=== PATIENT | male | born 1965 | race Caucasian/White ===

== ENCOUNTER → 2020-02-26 12:51 | Outpatient (BNVA) | payer SELFPAY | PROVIDERS: Visit Provider Emergency Medicine | DX: R50.9 Fever, unspecified (principal); R11.0 Nausea; R05 Cough; R68.89 Other general symptoms and signs; W57.XXXA Bitten or stung by nonvenomous insect and other nonvenomous arthropods, initial encounter | CPT/HCPCS: 87400; 87635 ==

== ENCOUNTER 2020-03-05 15:32 | Emergency (ER) | payer SELFPAY ==
[2020-03-05 15:44] VITALS: BP 133/89; PULSE 88; RESP 18; TEMP 36.5; O2SAT 97; BMI 32.1
--- NOTE | 2020-03-05 16:26 | CTR_ITS ---
PROCEDURE INFORMATION: Exam: CT Head Without Contrast Exam date and time: 03/05/2020 5:39 PM Age: 54 years old Clinical indication: Visual disturbance; Patient HX: C/O fever, weakness and double vision; Additional info: Visual changes/ headache TECHNIQUE: Imaging protocol: Computed tomography of the head without contrast. Radiation optimization: All CT scans at this facility use at least one of these dose optimization techniques: automated exposure control; mA and/or kV adjustment per patient size (includes targeted exams where dose is matched to clinical indication); or iterative reconstruction. COMPARISON: No relevant prior studies available. RADIATION DOSE METRICS: Total DLP (mGy-cm): 917.62 FINDINGS: Brain: There is no evidence of infarct, benito-white matter differentiation is preserved. There is no hemorrhage or extra-axial collection. There is no mass. No subarachnoid hemorrhage. No evidence of cerebral edema. Ventricles: Normal. No ventriculomegaly. Bones/joints: Unremarkable. No acute fracture. Sinuses: Visualized sinuses are unremarkable. No fluid levels. Mastoid air cells: Visualized mastoid air cells are well aerated. Soft tissues: Unremarkable. CT/CT head wo con* [id number] IMPRESSION: No intracranial lesion or injury. Radiation Dose CTDIVOL = (mGy): DLP = 917.62 (mGy-cm)
--- NOTE | 2020-03-05 18:09 | ED_ITS ---
Documented by User: Patrick Atkins DO 03/06/20 06:37 HPI - General Adult General: Chief complaint: General Medical Stated complaint: sent by dr brumfield Time Seen by Provider: 03/05/20 18:18 History of Present Illness: HPI narrative: 54-year-old male presents to the emergency room with complaint of just generally not feeling well. He actually has quite a history for the last several months off and on he is just not felt well. 4 weeks ago he had a tick bite with a bull's-eye rash he was seen by a local clinic was COVID tested through [employer] [facility] and that was negative. A tick panel was not done but based on the history he was started on doxycycline he was started on this doxycycline about 8 days ago he still has a few days ago. During this time since the initial tick bite he is noticed that he has had visual field symptoms particularly in his right eye he has had double vision is also had a loss of sensation in his feet and additionally had zinging shooting sensation into his feet but it is not radiating from his back it is just in the feet itself. He is not noticed any other wondering neuropathies. He has had at times though some memory loss along with a transient double vision. And at times he states he has significant memory gaps that he associates with fever. Has had temps up to 102 at times although is not had any temp today. Associated symptoms: Deny chest pain, dyspnea, malaise, nausea, rash or vomiting Review of Systems Const: Denies: fever(s), chills, body aches, change in appetite, fatigue or malaise ENMT: Denies: throat pain, ear or mastoid pain, nasal discharge or nasal conge stion Card: Denies: chest pain, edema, dyspnea on exertion or orthopnea Resp: Denies: dyspnea, productive cough or non-productive cough GI: Denies: abdominal pain, nausea, vomiting, hematemesis, coffee ground emesis, diarrhea, constipation, bloating, hematochezia or melena : Denies: flank pain, dysuria, urinary frequency or urinary urgency Skin/Breast: Denies: rash or pruritus PFSH ED PFSH: Medical History (Updated 03/05/20 @ 19:23 by Ravi Mendez DO) Patient denies significant medical history Vision changes Surgical History (Updated 03/05/20 @ 18:26 by Patrick Atkins DO) H/O decompression of ulnar nerve H/O hernia repair H/O knee surgery Social History Smoking and tobacco status: never smoked Alcohol intake: never Physical Exam Const: COMMON NORMALS: no acute distress GENERAL APPEARANCE: cooperative and comfortable ORIENTATION/CONSCIOUSNESS: Yes awake, Yes oriented to person, Yes oriented to place and Yes oriented to time HENMT: COMMON NORMALS: normocephalic, atraumatic, hearing grossly normal bilaterally, external ears normal, EAC's normal, TM's normal bilaterally, Normal nasal mucous membranes and turbinates present, moist oral mucous membranes and oropharynx normal HEAD & SCALP: normocephalic and atraumatic NOSE: Normal nasal mucous membranes and turbinates present EXTERNAL EAR: Yes external ears normal EXTERNAL AUDITORY CANAL: EAC's normal TYMPANIC MEMBRANE: TM's normal bilaterally Eye: COMMON NORMALS: Equal, round and reactive pupils present, EOMs intact bilaterally, conjunctivae normal and no scleral icterus CONJUNCTIVA: Yes conjunctivae normal PUPIL: Yes Equal, round and reactive pupils present Neck/C-Spine: COMMON NORMALS: full ROM, no lymphadenopathy, supple and no JVD Lymph: LYMPHATIC: no lymphadenopathy noted and no lymphedema noted Resp: COMMON NORMALS: normal respiratory effort, No retractions, No use of accessory muscles and clear to auscultation bilaterally AUSCULTATION: clear to auscultation bilaterally Cardio: COMMON NORMALS: no JVD, regular rate, regular rhythm and No murmurs present (Cardio) RATE: regular rate RHYTHM: regular rhythm GI: COMMON NORMALS: Soft to palpation and No hepatosplenomegaly present AUSCULTATION: Yes normoactive bowel sounds PALPATION: Yes Soft to palpation, No Tenderness to palpation present (GI), No Guarding due to palpation present (GI) and Yes No hepatosplenomegaly present Extremity: COMMON NORMALS: normal to inspection, capillary refill normal, no clubbing, cyanosis or edema, no calf tenderness and no pedal edema Neuro: SENSORIUM/ORIENTATION: Yes oriented to person, Yes oriented to place and Yes oriented to time Skin: COMMON NORMALS: no rashes or lesions noted GENERAL SKIN EXAM: no rashes or lesions noted Course Vital Signs: Vital signs: Vital Signs Temperature 97.7 F 03/05/20 15:44 Pulse Rate 88 03/05/20 15:44 Respiratory Rate 18 03/05/20 15:44 Blood Pressure 133/89 03/05/20 15:44 Pulse Oximetry 97 03/05/20 15:44 MDM - General Adult MDM Narrative: Medical decision making narrative: Discussed with Dr. Mendez care transferred to Dr. Mendez at change of shift. Lab Data: Labs: Lab Results 03/05/20 03/05/20 03/05/20 Range/Units 18:05 18:05 18:05 WBC 9.2 (4.0-10.0) 10^3/ uL RBC 4.51 (4.1-5.3) 10^6/u L Hgb 13.0 (11.7-16.6) g/dL Hct 41.0 L (42.0-52.0) % MCV 90.9 (80-94) fL MCH 28.8 (28.0-34.0) pg MCHC 31.7 (30.0-36.0) g/dL RDW 13.1 (12.1-15.1) % Plt Count 220 (130-400) 10^3/c mm MPV 8.8 (7.4-10.4) fL Neut % (Auto) 40.6 % Lymph % (Auto) 46.4 % Emmet % (Auto) 9.2 % Eos % (Auto) 0.9 % Baso % (Auto) 0.3 % Neut # (Auto) 3.7 (1.8-7.7) 10^3/u L Lymph # (Auto) 4.3 (0.8-4.8) 10^3/u L Emmet # (Auto) 0.8 (0.2-0.9) 10^3/u L Eos # (Auto) 0.1 (0.0-0.8) 10^3/u L Baso # (Auto) 0.0 (0.0-0.1) 10^3/u L Nucleated RBC % (a uto) 0 % Nucleated RBCs # 0.0 /100WBC Sodium 139 (136-145) mmol/L Potassium 4.6 (3.5-5.1) mmol/L Chloride 102 (98-107) mmol/L Carbon Dioxide 28 (22-29) mmol/L Anion Gap 13.6 (5-19) BUN 13 (6-20) mg/dL Creatinine 0.9 (0.7-1.2) mg/dL GFR Calculation 87.6 L (90-130) mL/min Glucose 98 (65-115) mg/dL Calculated Osmolal ity 284 L (285-295) mOsm/k g Lactate 1.3 (0.5-2.2) mmol/L Calcium 9.4 (8.5-10.5) mg/dL Total Bilirubin 0.3 (0.15-1.2) mg/dL AST 34 (0-40) U/L ALT 119 H (0-41) U/L Alkaline Phosphata se 79 (40-130) IU/L C-Reactive Protein (0.0-4.9) mg/L Total Protein 6.9 (6.6-8.7) g/dL Albumin 4.0 (3.5-5.2) g/dL Globulin 2.9 (1.3-4.6) g/dL Vitamin B12 (232-1245) pg/mL Folate (4.5-32.2) ng/mL Urine Color (Yellow) Urine Appearance (CLEAR) Urine pH (5-7) Ur Specific Gravit y (1.005-1.030) Urine Protein (Negative) Urine Glucose (UA) (Normal) Urine Ketones (Negative) Urine Blood (Negative) Urine Nitrate (Negative) Urine Bilirubin (NEGATIVE) Urine Urobilinogen (Negative) mg/dL Ur Leukocyte Niki ase (Negative) Rheumatoid Factor (0-14) IU/mL 03/05/20 03/05/20 03/05/20 Range/Units 18:05 18:05 18:05 WBC (4.0-10.0) 10^3/ uL RBC (4.1-5.3) 10^6/u L Hgb (11.7-16.6) g/dL Hct (42.0-52.0) % MCV (80-94) fL MCH (28.0-34.0) pg MCHC (30.0-36.0) g/dL RDW (12.1-15.1) % Plt Count (130-400) 10^3/c mm MPV (7.4-10.4) fL Neut % (Auto) % Lymph % (Auto) % Emmet % (Auto) % Eos % (Auto) % Baso % (Auto) % Neut # (Auto) (1.8-7.7) 10^3/u L Lymph # (Auto) (0.8-4.8) 10^3/u L Emmet # (Auto) (0.2-0.9) 10^3/u L Eos # (Auto) (0.0-0.8) 10^3/u L Baso # (Auto) (0.0-0.1) 10^3/u L Nucleated RBC % (a uto) % Nucleated RBCs # /100WBC Sodium (136-145) mmol/L Potassium (3.5-5.1) mmol/L Chloride (98-107) mmol/L Carbon Dioxide (22-29) mmol/L Anion Gap (5-19) BUN (6-20) mg/dL Creatinine (0.7-1.2) mg/dL GFR Calculation (90-130) mL/min Glucose (65-115) mg/dL Calculated Osmolal ity (285-295) mOsm/k g Lactate (0.5-2.2) mmol/L Calcium (8.5-10.5) mg/dL Total Bilirubin (0.15-1.2) mg/dL AST (0-40) U/L ALT (0-41) U/L Alkaline Phosphata se (40-130) IU/L C-Reactive Protein 14.9 H (0.0-4.9) mg/L Total Protein (6.6-8.7) g/dL Albumin (3.5-5.2) g/dL Globulin (1.3-4.6) g/dL Vitamin B12 1039 (232-1245) pg/mL Folate 15.1 (4.5-32.2) ng/mL Urine Color (Yellow) Urine Appearance (CLEAR) Urine pH (5-7) Ur Specific Gravit y (1.005-1.030) Urine Protein (Negative) Urine Glucose (UA) (Normal) Urine Ketones (Negative) Urine Blood (Negative) Urine Nitrate (Negative) Urine Bilirubin (NEGATIVE) Urine Urobilinogen (Negative) mg/dL Ur Leukocyte Niki ase (Negative) Rheumatoid Factor 10.0 (0-14) IU/mL 03/05/20 Range/Units 18:20 WBC (4.0-10.0) 10^3/ uL RBC (4.1-5.3) 10^6/u L Hgb (11.7-16.6) g/dL Hct (42.0-52.0) % MCV (80-94) fL MCH (28.0-34.0) pg MCHC (30.0-36.0) g/dL RDW (12.1-15.1) % Plt Count (130-400) 10^3/c mm MPV (7.4-10.4) fL Neut % (Auto) % Lymph % (Auto) % Emmet % (Auto) % Eos % (Auto) % Baso % (Auto) % Neut # (Auto) (1.8-7.7) 10^3/u L Lymph # (Auto) (0.8-4.8) 10^3/u L Emmet # (Auto) (0.2-0.9) 10^3/u L Eos # (Auto) (0.0-0.8) 10^3/u L Baso # (Auto) (0.0-0.1) 10^3/u L Nucleated RBC % (a uto) % Nucleated RBCs # /100WBC Sodium (136-145) mmol/L Potassium (3.5-5.1) mmol/L Chloride (98-107) mmol/L Carbon Dioxide (22-29) mmol/L Anion Gap (5-19) BUN (6-20) mg/dL Creatinine (0.7-1.2) mg/dL GFR Calculation (90-130) mL/min Glucose (65-115) mg/dL Calculated Osmolal ity (285-295) mOsm/k g Lactate (0.5-2.2) mmol/L Calcium (8.5-10.5) mg/dL Total Bilirubin (0.15-1.2) mg/dL AST (0-40) U/L ALT (0-41) U/L Alkaline Phosphata se (40-130) IU/L C-Reactive Protein (0.0-4.9) mg/L Total Protein (6.6-8.7) g/dL Albumin (3.5-5.2) g/dL Globulin (1.3-4.6) g/dL Vitamin B12 (232-1245) pg/mL Folate (4.5-32.2) ng/mL Urine Color Yellow (Yellow) Urine Appearance Clear (CLEAR) Urine pH 6 (5-7) Ur Specific Gravit y 1.015 (1.005-1.030) Urine Protein Neg (Negative) Urine Glucose (UA) Norm (Normal) Urine Ketones Negative (Negative) Urine Blood Neg (Negative) Urine Nitrate Negative (Negative) Urine Bilirubin Neg (NEGATIVE) Urine Urobilinogen Neg (Negative) mg/dL Ur Leukocyte Niki ase Negative (Negative) Rheumatoid Factor (0-14) IU/mL Discharge Plan Discharge Patient Disposition: Home, Self-Care Clinical Impression: Neuropathy, Myalgia Condition: Stable Prescriptions: New doxycycline hyclate 100 mg capsule 100 mg PO BID 14 Days Qty: 28 RF: 0 No Action albuterol sulfate 90 mcg/actuation HFA aerosol inhaler 2 puff INHALATION Q6H PRN (Reason: shortness of breath or wheezing) Qty: 8.5 RF: 0 doxycycline hyclate 100 mg tablet 100 mg PO BID 10 Days Qty: 20 RF: 0 ondansetron 4 mg tablet,disintegrating 4 mg PO Q6H PRN (Reason: nausea and vomiting) Qty: 12 RF: 0 guaifenesin [Mucinex] 600 mg tablet extended release 12hr 600 mg PO Q12H PRNRF: 0 ibuprofen 200 mg tablet 600 mg PO Q6H PRNRF: 0 Discharge Orders: Discharge Order (Routine); Ordered 03/05/20 Ordered By: Ravi Mendez Discharge Diet: Usual diet Discharge Activity: Increase activity as tolerated Patient Instructions: Peripheral Neuropathy (ED), Paresthesia (ED) Activity Restrictions/Additional Instructions: Case management referrals have been placed for both rheumatology and neurology. Continue the doxycycline as we discussed. Return for fever greater than 100 despite treatment, worsening symptoms despite treatment, other concerning symptoms. Discharge Date/Time: 03/05/20 19:59 Coding Level of Care Code ED Vp Compliance for Chg Fwd Exam Comprehensive Documented by User: Ravi Mendez DO 03/06/20 08:02 HPI - General Adult General: Chief complaint: General Medical Stated complaint: sent by dr brumfield Time Seen by Provider: 03/05/20 18:18 [facility] ED PFSH: Medical History (Updated 03/05/20 @ 19:23 by Ravi Mendez DO) Patient denies significant medical history Vision changes Surgical History (Updated 03/05/20 @ 18:26 by Patrick Atkins DO) H/O decompression of ulnar nerve H/O hernia repair H/O knee surgery Social History Smoking and tobacco status: never smoked Alcohol intake: never Course Vital Signs: Vital signs: Vital Signs Temperature 97.7 F 03/05/20 15:44 Pulse Rate 88 03/05/20 15:44 Respiratory Rate 18 03/05/20 15:44 Blood Pressure 133/89 03/05/20 15:44 Pulse Oximetry 97 03/05/20 15:44 MDM - General Adult MDM Narrative: Medical decision making narrative: 54-year-old male checked out to me by Dr. Atkins. He presents with generally not feeling well, some neuropathic type symptoms, transient neurological symptoms, and some myalgias. He has generalized malaise. There was some concern over a tick bite. He says he is improved after starting doxycycline, but only has 2 days left. His labs here are benign. His head CT does not reveal lesion, stroke, etc. He was counseled on his diagnosis. He may need more advanced imaging. He was told this. Tick panel is been sent, although he does not have any secondary signs on laboratory of tickborne illness. His doxycycline will be continued. Vitamin B12 and folate levels will be drawn, as well as an WOODY panel. Referral to neurology has been sent through case management. Lab Data: Labs: Lab Results 03/05/20 03/05/20 03/05/20 Range/Units 18:05 18:05 18:05 WBC 9.2 (4.0-10.0) 10^3/ uL RBC 4.51 (4.1-5.3) 10^6/u L Hgb 13.0 (11.7-16.6) g/dL Hct 41.0 L (42.0-52.0) % MCV 90.9 (80-94) fL MCH 28.8 (28.0-34.0) pg MCHC 31.7 (30.0-36.0) g/dL RDW 13.1 (12.1-15.1) % Plt Count 220 (130-400) 10^3/c mm MPV 8.8 (7.4-10.4) fL Neut % (Auto) 40.6 % Lymph % (Auto) 46.4 % Emmet % (Auto) 9.2 % Eos % (Auto) 0.9 % Baso % (Auto) 0.3 % Neut # (Auto) 3.7 (1.8-7.7) 10^3/u L Lymph # (Auto) 4.3 (0.8-4.8) 10^3/u L Emmet # (Auto) 0.8 (0.2-0.9) 10^3/u L Eos # (Auto) 0.1 (0.0-0.8) 10^3/u L Baso # (Auto) 0.0 (0.0-0.1) 10^3/u L Nucleated RBC % (a uto) 0 % Nucleated RBCs # 0.0 /100WBC Sodium 139 (136-145) mmol/L Potassium 4.6 (3.5-5.1) mmol/L Chloride 102 (98-107) mmol/L Carbon Dioxide 28 (22-29) mmol/L Anion Gap 13.6 (5-19) BUN 13 (6-20) mg/dL Creatinine 0.9 (0.7-1.2) mg/dL GFR Calculation 87.6 L (90-130) mL/min Glucose 98 (65-115) mg/dL Calculated Osmolal ity 284 L (285-295) mOsm/k g Lactate 1.3 (0.5-2.2) mmol/L Calcium 9.4 (8.5-10.5) mg/dL Total Bilirubin 0.3 (0.15-1.2) mg/dL AST 34 (0-40) U/L ALT 119 H (0-41) U/L Alkaline Phosphata se 79 (40-130) IU/L C-Reactive Protein (0.0-4.9) mg/L Total Protein 6.9 (6.6-8.7) g/dL Albumin 4.0 (3.5-5.2) g/dL Globulin 2.9 (1.3-4.6) g/dL Vitamin B12 (232-1245) pg/mL Folate (4.5-32.2) ng/mL Urine Color (Yellow) Urine Appearance (CLEAR) Urine pH (5-7) Ur Specific Gravit y (1.005-1.030) Urine Protein (Negative) Urine Glucose (UA) (Normal) Urine Ketones (Negative) Urine Blood (Negative) Urine Nitrate (Negative) Urine Bilirubin (NEGATIVE) Urine Urobilinogen (Negative) mg/dL Ur Leukocyte Niki ase (Negative) Rheumatoid Factor (0-14) IU/mL 03/05/20 03/05/20 03/05/20 Range/Units 18:05 18:05 18:05 WBC (4.0-10.0) 10^3/ uL RBC (4.1-5.3) 10^6/u L Hgb (11.7-16.6) g/dL Hct (42.0-52.0) % MCV (80-94) fL MCH (28.0-34.0) pg MCHC (30.0-36.0) g/dL RDW (12.1-15.1) % Plt Count (130-400) 10^3/c mm MPV (7.4-10.4) fL Neut % (Auto) % Lymph % (Auto) % Emmet % (Auto) % Eos % (Auto) % Baso % (Auto) % Neut # (Auto) (1.8-7.7) 10^3/u L Lymph # (Auto) (0.8-4.8) 10^3/u L Emmet # (Auto) (0.2-0.9) 10^3/u L Eos # (Auto) (0.0-0.8) 10^3/u L Baso # (Auto) (0.0-0.1) 10^3/u L Nucleated RBC % (a uto) % Nucleated RBCs # /100WBC Sodium (136-145) mmol/L Potassium (3.5-5.1) mmol/L Chloride (98-107) mmol/L Carbon Dioxide (22-29) mmol/L Anion Gap (5-19) BUN (6-20) mg/dL Creatinine (0.7-1.2) mg/dL GFR Calculation (90-130) mL/min Glucose (65-115) mg/dL Calculated Osmolal ity (285-295) mOsm/k g Lactate (0.5-2.2) mmol/L Calcium (8.5-10.5) mg/dL Total Bilirubin (0.15-1.2) mg/dL AST (0-40) U/L ALT (0-41) U/L Alkaline Phosphata se (40-130) IU/L C-Reactive Protein 14.9 H (0.0-4.9) mg/L Total Protein (6.6-8.7) g/dL Albumin (3.5-5.2) g/dL Globulin (1.3-4.6) g/dL Vitamin B12 1039 (232-1245) pg/mL Folate 15.1 (4.5-32.2) ng/mL Urine Color (Yellow) Urine Appearance (CLEAR) Urine pH (5-7) Ur Specific Gravit y (1.005-1.030) Urine Protein (Negative) Urine Glucose (UA) (Normal) Urine Ketones (Negative) Urine Blood (Negative) Urine Nitrate (Negative) Urine Bilirubin (NEGATIVE) Urine Urobilinogen (Negative) mg/dL Ur Leukocyte Niki ase (Negative) Rheumatoid Factor 10.0 (0-14) IU/mL 03/05/20 Range/Units 18:20 WBC (4.0-10.0) 10^3/ uL RBC (4.1-5.3) 10^6/u L Hgb (11.7-16.6) g/dL Hct (42.0-52.0) % MCV (80-94) fL MCH (28.0-34.0) pg MCHC (30.0-36.0) g/dL RDW (12.1-15.1) % Plt Count (130-400) 10^3/c mm MPV (7.4-10.4) fL Neut % (Auto) % Lymph % (Auto) % Emmet % (Auto) % Eos % (Auto) % Baso % (Auto) % Neut # (Auto) (1.8-7.7) 10^3/u L Lymph # (Auto) (0.8-4.8) 10^3/u L Emmet # (Auto) (0.2-0.9) 10^3/u L Eos # (Auto) (0.0-0.8) 10^3/u L Baso # (Auto) (0.0-0.1) 10^3/u L Nucleated RBC % (a uto) % Nucleated RBCs # /100WBC Sodium (136-145) mmol/L Potassium (3.5-5.1) mmol/L Chloride (98-107) mmol/L Carbon Dioxide (22-29) mmol/L Anion Gap (5-19) BUN (6-20) mg/dL Creatinine (0.7-1.2) mg/dL GFR Calculation (90-130) mL/min Glucose (65-115) mg/dL Calculated Osmolal ity (285-295) mOsm/k g Lactate (0.5-2.2) mmol/L Calcium (8.5-10.5) mg/dL Total Bilirubin (0.15-1.2) mg/dL AST (0-40) U/L ALT (0-41) U/L Alkaline Phosphata se (40-130) IU/L C-Reactive Protein (0.0-4.9) mg/L Total Protein (6.6-8.7) g/dL Albumin (3.5-5.2) g/dL Globulin (1.3-4.6) g/dL Vitamin B12 (232-1245) pg/mL Folate (4.5-32.2) ng/mL Urine Color Yellow (Yellow) Urine Appearance Clear (CLEAR) Urine pH 6 (5-7) Ur Specific Gravit y 1.015 (1.005-1.030) Urine Protein Neg (Negative) Urine Glucose (UA) Norm (Normal) Urine Ketones Negative (Negative) Urine Blood Neg (Negative) Urine Nitrate Negative (Negative) Urine Bilirubin Neg (NEGATIVE) Urine Urobilinogen Neg (Negative) mg/dL Ur Leukocyte Niki ase Negative (Negative) Rheumatoid Factor (0-14) IU/mL Discharge Plan Discharge Patient Disposition: Home, Self-Care Clinical Impression: Neuropathy, Myalgia Condition: Stable Prescriptions: New doxycycline hyclate 100 mg capsule 100 mg PO BID 14 Days Qty: 28 RF: 0 No Action albuterol sulfate 90 mcg/actuation HFA aerosol inhaler 2 puff INHALATION Q6H PRN (Reason: shortness of breath or wheezing) Qty: 8.5 RF: 0 doxycycline hyclate 100 mg tablet 100 mg PO BID 10 Days Qty: 20 RF: 0 ondansetron 4 mg tablet,disintegrating 4 mg PO Q6H PRN (Reason: nausea and vomiting) Qty: 12 RF: 0 guaifenesin [Mucinex] 600 mg tablet extended release 12hr 600 mg PO Q12H PRNRF: 0 ibuprofen 200 mg tablet 600 mg PO Q6H PRNRF: 0 Discharge Orders: Discharge Order (Routine); Ordered 03/05/20 Ordered By: Ravi Mendez Discharge Diet: Usual diet Discharge Activity: Increase activity as tolerated Patient Instructions: Peripheral Neuropathy (ED), Paresthesia (ED) Activity Restrictions/Additional Instructions: Case management referrals have been placed for both rheumatology and neurology. Continue the doxycycline as we discussed. Return for fever greater than 100 despite treatment, worsening symptoms despite treatment, other concerning sympt oms. Discharge Date/Time: 03/05/20 19:59 Coding Level of Care Code ED Vp Compliance for Deysi Fwd Exam Comprehensive
[2020-03-05 18:22] LABS: Basophils % 0.3 %; Eosinophils # 0.1 10^3/uL (0.0-0.8); Eosinophils % 0.9 %; Lymphocytes # 4.3 10^3/uL (0.8-4.8); Lymphocytes % 46.4 %; Mean Corpuscular HGB Conc 31.7 g/dL (30.0-36.0); Mean Corpuscular Hemoglobin 28.8 pg (28.0-34.0); Mean Corpuscular Volume 90.9 fL (80-94); Mean Platelet Volume 8.8 fL (7.4-10.4); Monocytes # 0.8 10^3/uL (0.2-0.9); Monocytes % 9.2 %; Neutrophils # 3.7 10^3/uL (1.8-7.7); Neutrophils % 40.6 %; Nucleated Red Blood Cells % 0 %; Platelet Count 220 10^3/cmm (130-400); Red Blood Count 4.51 10^6/uL (4.1-5.3); Red Cell Distribution Width 13.1 % (12.1-15.1); White Blood Count 9.2 10^3/uL (4.0-10.0)
[2020-03-05 18:31] LABS: Add Urine Microscopic? NO
[2020-03-05 18:38] LABS: Bilirubin Urine Neg (NEGATIVE); Blood Urine Neg (Negative); Glucose Urine UA Norm (Normal); Ketones Urine Negative (Negative); Leukocyte Esterase Urine Negative (Negative); Nitrate Urine Negative (Negative); Protein Urine Neg (Negative); Specific Gravity, Urine 1.015 (1.005-1.030); Urine Appearance Clear (CLEAR); Urine Color Yellow (Yellow); Urobilinogen Urine Neg (Negative); pH Urine 6 (5-7)
[2020-03-05 18:44] LABS: Alanine Aminotransferase 119 U/L (0-41); Alkaline Phosphatase 79 IU/L (40-130); Anion Gap 13.6 (5-19); Aspartate Amino Transferase 34 U/L (0-40); Blood Urea Nitrogen 13 mg/dL (6-20); Calcium 9.4 mg/dL (8.5-10.5); Carbon Dioxide 28 mmol/L (22-29); Chloride 102 mmol/L (98-107); Globulin 2.9 g/dL (1.3-4.6); Glomerular Filtration Rate 87.6 mL/min (90-130); Glucose 98 mg/dL (65-115); Osmolality Calculated 284 mOsm/kg (285-295); Potassium 4.6 mmol/L (3.5-5.1); Sodium 139 mmol/L (136-145); Total Bilirubin 0.3 mg/dL (0.15-1.2); Total Protein 6.9 g/dL (6.6-8.7)
[2020-03-05 18:45] LABS: Lactate (Lactic Acid level) 1.3 mmol/L (0.5-2.2)
[2020-03-05 19:46] LABS: C Reactive Protein 14.9 mg/L (0.0-4.9)
[2020-03-05 20:02] LABS: Vitamin B12 1039 pg/mL (232-1245)
[2020-03-05 20:19] LABS: Folate Level 15.1 ng/mL (4.5-32.2)
--- NOTE | 2020-03-08 13:57 | DCPLANNER ---
manager speech was asked to schedule a follow up appointment for patient with Dr. Rubalcava. manager speech called the office of Dr. Rubalcava, spoke with Fabi, gave clinic patients information. manager speech was told that patients information would be printed and reviewed. Clinic will call patient with appointment information.
--- NOTE | 2020-03-09 09:03 | DCPLANNER ---
Patient has a follow up appointment scheduled for Monday, April 27, 2020 at 12:[address] Rubalcava. Clinic will call patient with appointment information.
--- NOTE | 2020-03-09 10:30 | DCPLANNER ---
hair or beauty salon manager had message to schedule a follow up appointment for patient with rheumatology. hair or beauty salon manager called the clinic, spoke with VALENTIN, gave clinic patients information. hair or beauty salon manager was told that patients information would be printed and reviewed. Clinic will call patient with appointment information.
[2020-03-10 12:19] LABS: Anti-Nuclear Antibody Screen NEGATIVE (NEGATIVE)
--- NOTE | 2020-03-16 15:23 | DCPLANNER ---
contract administration manager called rheumatology to confirm that a follow up appointment had been scheduled for patient. contract administration manager was told that an appointment has not been scheduled at this time.
--- NOTE | 2020-03-19 10:40 | DCPLANNER ---
manager care management spoke with implementation project coordinator, Zoraida, at Rheumatology, was told that clinic has tried multiple times to reach patient to schedule a follow up appointment, and has been unable to reach patient to schedule follow up.
--- NOTE | 2020-05-27 07:59 | DCPLANNER ---
Patient had a follow up appointment scheduled for 04.27.[address] Rubalcava - patient did not attend the appointment.
== END 2020-03-05 19:59 | disposition home or self-care (01) ==
PROVIDERS: Family Medicine; Emergency Provider Emergency Medicine
DX: M79.10 Myalgia, unspecified site (principal); G62.9 Polyneuropathy, unspecified
CPT/HCPCS: 12345; 36415; 70450; 80053; 81003; 82607; 82746; 83605; 85025; 86038; 86140; 86431; 86618; 86666; 86757; 87040; 99281; 99283